=== PATIENT | male | born 1985 | race Caucasian/White ===

== ENCOUNTER 2025-06-29 00:42 | Emergency (ER) | payer MEDICAID, SELFPAY ==
[2025-06-29 00:48] VITALS: BP 165/96; PULSE 89; RESP 16; TEMP 36.9; O2SAT 98; BMI 27.1
[2025-06-29 00:52] VITALS: BP 165/96; PULSE 89; RESP 16; TEMP 36.9; O2SAT 98
--- NOTE | 2025-06-29 00:57 | W.ED.HA ---
HPI - Headache General: Stated Complaint: Upset stomach, bad headache Time Seen by Provider: 06/29/25 00:47 Source: patient Mode of arrival: ambulatory Limitations: no limitations History of Present Illness: 40-year-old male states he had a headache started roughly 2 to 3 hours ago states that started gradually and is worse and is currently an 8 out of 10. States he has photophobia and phonophobia he has had some nausea as well. States has had vomiting after the headache as well. Associated symptoms: Reports vomiting Related Data Allergies Allergy/AdvReac Type Severity Reaction Status Date / Time Penicillins Allergy Unknown Verified 06/29/25 00:59 Review of Systems Eyes: Denies: change in vision GI: Reports: vomiting Neuro: Reports: headache(s) Physical Exam Const: COMMON NORMALS: no acute distress, patient oriented x3 and healthy appearing HENMT: COMMON NORMALS: normocephalic and atraumatic HEAD & SCALP: normocephalic and atraumatic Eye: COMMON NORMALS: Equal, round and reactive pupils present and EOMs intact bilaterally PUPIL: Yes Equal, round and reactive pupils present Neck/C-Spine: COMMON NORMALS: full ROM and supple GENERAL: No Meningeal signs present Chest: COMMONS NORMALS: normal inspection of the chest Resp: COMMON NORMALS: normal respiratory effort, No retractions, No use of accessory muscles and clear to auscultation bilaterally AUSCULTATION: clear to auscultation bilaterally Cardio: COMMON NORMALS: regular rate, regular rhythm and No murmurs present (Cardio) RATE: regular rate RHYTHM: regular rhythm Extremity: COMMON NORMALS: normal to inspection and full ROM Neuro: COMMON NORMALS: patient oriented x3, moves all extremities and no focal motor deficits Psych: COMMON NORMALS: mental status grossly normal, Normal thought process present and cooperative THOUGHT PROCESS: Normal thought process present Skin: COMMON NORMALS: no rashes or lesions noted and no wounds GENERAL SKIN EXAM: no rashes or lesions noted Course Vital Signs: Vital signs: Vital Signs Temperature 98.4 F 06/29/25 00:52 Pulse Rate 89 06/29/25 00:52 Respiratory Rate 16 06/29/25 00:52 Blood Pressure 165/96 06/29/25 00:52 Pulse Oximetry 98 06/29/25 00:52 Oxygen Delivery Me thod Room Air 06/29/25 00:52 MDM - Headache Medical Decision Making Patient presents here with headaches likely migraine headache he has no signs of subarachnoid hemorrhage or meningitis his head CT was negative his headache is resolved currently after Reglan Benadryl and Toradol he is stable for discharge follow-up with PCP went over his imaging with him he understands agrees to plan Medical Records I reviewed the patient's medical records. Lab Data I reviewed the patient's lab results. Radiology Impressions Head CT 06/29/25 01:35 IMPRESSION: No acute intracranial abnormality. All radiology interpretation(s) finalized by discharge EKG Data EKG 1: I personally reviewed and interpreted this EKG as follows: EKG interpretation date: 06/29/25 EKG interpretation time: 01:28 Interpretation: nsr hr [address] elevation qrs 90 qtc 412 Discharge Plan Discharge Patient Disposition: Home Clinical Impression: Headache Condition: Stable Discharge Orders: Discharge ED (Routine); Ordered 06/29/25 Ordered By: Gianni Claros Discharge Diet: Advance as tolerated Discharge Activity: Resume usual activity Patient Instructions: Migraine Headache (ED) Print Language: Hebrew Coding Level of Care Code ED Websphere Consultant for Yadira Mckenzie
--- OUTSIDE RECORDS SUMMARY | 2025-06-29 01:07 | XMS_ITS | Clinical Summary ---
Author Organization [facility] Address [address] [place] [id number] Phone Care Team Providers Care Braid Cutter Name Role Phone System, Provider Not In DO Primary Care Provider Allergies Active Allergy Reactions Criticality Noted Date Comments Penicillins 05/01/2023 CHILDHOOD Medications albuterol (Proventil;Saw ilya) 90 mcg/actuation inhaler Inhale 1-2 puffs every 6 (six) hours if needed for wheezing. 18 g 05/01/2023 Active Social History Tobacco Use Types Packs/Day Years Used Date Smoking Tobacco: Every Day Cigarettes Smokeless Tobacco: Current Tobacco Cessation:Ready to Q uit: Not Asked; Counseling Given: Not Answered Sex and Gender Information Value Date Recorded Sex Assigned at Not on file Legal Sex Male 2:41 AM CDT Gender Identity Not on file Sexual Orientation Not on file Last Filed Vital Signs Vital Sign Reading Time Taken Comments Blood Pressure 121/81 05/01/2023 8:00 AM CDT Pulse 92 05/01/2023 8:00 AM CDT Temperature 36.8 C (98.2 F) 05/01/2023 2:44 AM CDT Respiratory Rate 16 05/01/2023 8:00 AM CDT Oxygen Saturation 96% 05/01/2023 8:00 AM CDT Inhaled Oxygen Concentration - - Weight 90.7 kg (200 lb) 05/01/2023 7:35 AM CDT Height 182.9 cm (6') 05/01/2023 7:35 AM CDT Body Mass Index 27.12 05/01/2023 7:35 AM CDT Plan of Treatment Health Maintenance Due Date Last Done Comments Lipid Panel 1983 MMR Vaccines (1 of 1 - Stand mandeep series) 1984 DTaP,Tdap,and Td Vaccines (1 - Tdap) 1990 Varicella Vaccines (1 of 2 - 13+ 2-dose series) 1996 Depression Screening 2001 Diabetes Screening 2001 Social Drivers of Health (SDoH) 2001 Hepatitis B Vaccines (1 of 3 - 19+ 3-dose series) 2002 Pneumococcal Vaccine: 50+ Ye ars (1 of 2 - PCV) 2002 Pneumococcal Vaccine (1 of 2 - PCV) 2002 HPV Vaccines (1 - 3-dose SCD M series) 2010 COVID-19 Vaccine (1 - 2023-2 5 season) 2025 Influenza Vaccine (#1) 2025 Zoster Vaccines (1 of 2) 2033 RSV Vaccines (1 - 1-dose 75+ series) 2058 HIB Vaccines Aged Out No longer eligi ble based on patient's age to complete this topic Hepatitis A Vaccines Aged Out No long er eligible based on patient's age to complete this topic IPV Vaccines Aged Out No longer eligi ble based on patient's age to complete this topic Meningococcal B Vaccine Aged Out No l onger eligible based on patient's age to complete this topic Meningococcal Vaccine Aged Out No debbie jameel eligible based on patient's age to complete this topic Rotavirus Vaccines Aged Out No longer eligible based on patient's age to complete this topic Insurance [facility] MEDICAID Care Teams Braid Cutter Relationship Specialty Start Date End Date System, Provider Not In, DO [address] [id number] PCP - General 05/01/23
--- OUTSIDE RECORDS SUMMARY | 2025-06-29 01:07 | XMS_ITS | Clinical Summary ---
Author Organization [facility] de Address [address] [place] [address] Phone Care Team Providers Care [facility] Cook Name Role Phone Unavailable Primary Care Provider Unavailabl e Allergies Active Allergy Reactions Criticality Noted Date Comments Nsaids (Non-Steroidal Anti-I nflammatory Drug) Unknown 11/18/2022 Penicillins Unknown 11/18/2022 Tramadol Unknown 11/18/2022 Medications citalopram (CeleXA) 20 mg tablet Take 1 Tablet (20 mg) by mouth daily at bedtime. 30 Tablet 12/15/2024 Active hydrOXYzine HCL (ATARAX) 25 mg tablet Take 1 Tablet (25 mg) by mouth every 8 hours as needed for Anxiety. 60 Tablet 12/15/2024 Active naltrexone (DEPADE) 50 mg tablet Take 1 Tablet (50 mg) by mouth daily. 30 Tablet 12/15/2024 Active Active Problems Problem Noted Date Diagnosed Date Partial bowel obstruction 09/08/2023 Nausea & vomiting 09/08/2023 Abdominal pain 09/08/2023 Encounters Date Type Department Care Team Description 06/06/2025 External Device Data [facility] ABSTRACTION Provider, Abstract 05/30/2025 External Device Data [facility] ABSTRACTION Provider, Abstract 05/29/2025 External Device Data [facility] ABSTRACTION Provider, Abstract 05/29/2025 External Device Data [facility] ABSTRACTION Provider, Abstract 05/23/2025 External Device Data [facility] ABSTRACTION Provider, Abstract 04/18/2025 External Device Data [facility] ABSTRACTION Provider, Abstract from Last 3 Months Social History Tobacco Use Types Packs/Day Years Used Date Smoking Tobacco: Some Days Cigarettes Tobacco Cessation:Ready to Q uit: Not Asked; Counseling Given: Not Answered Alcohol Use Standard Drinks/Week Comments Yes 0 (1 standard drink = 0.6 oz pur e alcohol) Feeling Safe Answer Date Recorded Are you in a relationship wi th someone who hurts you emotionally and/or physically? No 12/15/2024 Housing Stability Answer Date Recorded Social/Environmental Concerns Homeless;No electr icity;Lack of resources 09/08/2023 Sex and Gender Information Value Date Recorded Sex Assigned at Not on file Legal Sex Male 1:53 PM [employer]IGITAL [employer] Gender Identity Not on file Sexual Orientation Not on file Last Filed Vital Signs Vital Sign Reading Time Taken Comments Blood Pressure 143/90 12/15/2024 7:00 AM CDT Pulse 105 12/15/2024 3:36 AM CDT Temperature 36.8 C (98.2 F) 12/15/2024 3:36 AM CDT Respiratory Rate 16 12/15/2024 7:00 AM CDT Oxygen Saturation 98% 12/15/2024 7:00 AM CDT Inhaled Oxygen Concentration - - Weight 85 kg (187 lb 6.3 oz) 12/15/2024 3:36 AM CDT Height 182.9 cm (6') 12/15/2024 3:36 AM CDT Body Mass Index 25.41 12/15/2024 3:36 AM CDT Plan of Treatment Health Maintenance Due Date Last Done Comments Pre-Diabetes and Diabetes Screening 1983 DTAP/TDAP/TD VACCINES (1 - Tdap) 2002 HEPATITIS B VACCINES (1 of 3 - 19+ 3-dose series) 10/2001 HPV VACCINES (1 - 3-dose SCDM series) 2010 INFLUENZA VACCINE (#1) 2025 Abdominal Aortic Aneurysm (AAA) Screening Completed 09/08/2023 Procedures Procedure Name Priority Date/Time Associated Diagnosis Comments CT ABDOMEN PELVIS WO CONTRAST Stat 09/08/2023 2:17 AM DIGITAL MARKETING ASSOCIATE from Last 3 Months or Most Recently Relevant to Health Maintenance Results * CT ABDOMEN PELVIS WO CONTRAST (09/08/2023 2:17 AM DIGITAL MARKETING ASSOCIATE) Anatomical Region Laterality Modality Abdomen Computed Tomogra phy 09/08/2023 2:18 AM DIGITAL MARKETING ASSOCIATE Impressions 09/08/2023 2:28 AM DIGITAL MARKETING ASSOCIATE IMPRESSION: 1. Dilated fluid-filled proximal small bowel loops with transition point in the left lower quadrant to decompressed distal small bowel suggesting at least partial small bowel obstruction. The examination was performed with the adjustment of mA according to the patient size and/or the use of Iterative Reconstruction Technique. DICTATION LOCATION: Location 4 Narrative 09/08/2023 2:[address] [address] [address] ABDOMEN AND PELVIS WITHOUT CONTRAST DATE: 09/08/2023 2:17 AM HISTORY: LLQ abdominal pain, vomiting. See Reason for Exam COMPARISON: 04/05/2023 TECHNIQUE: Multislice helical imaging of the abdomen and pelvis without contrast. Orthogonal reconstructions were created. FINDINGS: LOWER CHEST: No acute consolidation in the visible lung bases. LIVER: No contour deforming mass. GALLBLADDER AND BILIARY: No calcified gallstones. No CT apparent gallbladder wall thickening or surrounding fluid. No biliary ductal dilation. PANCREAS: No ductal dilation or pancreatic centered inflammatory changes. SPLEEN: Mildly enlarged spleen measures 14 cm. ADRENAL GLANDS: Symmetric adrenal glands. No discrete mass. KIDNEYS/URETERS: No hydronephrosis. No contour deforming mass. No ureteral calculus. URINARY BLADDER: Unremarkable for the degree of distention. REPRODUCTIVE ORGANS: Unremarkable STOMACH AND BOWEL: Stomach is unremarkable for the degree of distention. There are dilated jejunal bowel loops in the left upper quadrant and bilateral lower quadrants. There is transition to decompressed distal small bowel (series 5 image 92 through 100) in the left lower quadrant. The distal small bowel loops are decompressed. The appendix is normal. Colon is normal in caliber. VESSELS: Normal caliber abdominal aorta. LYMPH NODES: No pathologic lymph node enlargement. PERITONEUM/RETROPERITONEUM: No pneumoperitoneum. No substantive free fluid or identifiable organized fluid collections. ABDOMINAL WALL: Unremarkable BONES: No destructive osseous lesions. ADDITIONAL: None Procedure Note Moose Covington III, MD - 09/08/2023 CT ABDOMEN AND PELVIS WITHOUT CONTRAST DATE: 09/08/2023 2:17 AM HISTORY: LLQ abdominal pain, vomiting. See Reason for Exam COMPARISON: 04/05/2023 TECHNIQUE: Multislice helical imaging of the abdomen and pelvis without contrast. Orthogonal reconstructions were created. FINDINGS: LOWER CHEST: No acute consolidation in the visible lung bases. LIVER: No contour deforming mass. GALLBLADDER AND BILIARY: No calcified gallstones. No CT apparent gallbladder wall thickening or surrounding fluid. No biliary ductal dilation. PANCREAS: No ductal dilation or pancreatic centered inflammatory changes. SPLEEN: Mildly enlarged spleen measures 14 cm. ADRENAL GLANDS: Symmetric adrenal glands. No discrete mass. KIDNEYS/URETERS: No hydronephrosis. No contour deforming mass. No ureteral calculus. URINARY BLADDER: Unremarkable for the degree of distention. REPRODUCTIVE ORGANS: Unremarkable STOMACH AND BOWEL: Stomach is unremarkable for the degree of distention. There are dilated jejunal bowel loops in the left upper quadrant and bilateral lower quadrants. There is transition to decompressed distal small bowel (series 5 image 92 through 100) in the left lower quadrant. The distal small bowel loops are decompressed. The appendix is normal. Colon is normal in caliber. VESSELS: Normal caliber abdominal aorta. LYMPH NODES: No pathologic lymph node enlargement. PERITONEUM/RETROPERITONEUM: No pneumoperitoneum. No substantive free fluid or identifiable organized fluid collections. ABDOMINAL WALL: Unremarkable BONES: No destructive osseous lesions. ADDITIONAL: None IMPRESSION: 1. Dilated fluid-filled proximal small bowel loops with transition point in the left lower quadrant to decompressed distal small bowel suggesting at least partial small bowel obstruction. The examination was performed with the adjustment of mA according to the patient size and/or the use of Iterative Reconstruction Technique. DICTATION LOCATION: Location [address] ORDERABLES Final Result from Last 3 Months or Most Recently Relevant to Health Maintenance Insurance [facility] [id number] [place] [address] MD SHARON [id number] Advance Directives For more information, please contact: [phone] * Full Code (Latest Code Status on File) Date Activated Date Inactivated Comments 09/08/2023 4:20 AM 09/08/2023 6:34 PM
--- OUTSIDE RECORDS SUMMARY | 2025-06-29 01:07 | XMS_ITS | Data Portability ---
Author Organization [place] - [facility], [facility] - [place] Address [address] [place] [address] Assessment Encounter Date Assessment Date Assessment LastModified by Organization Details LastModified Time 07/01/2023 07/01/2023 will call with l ab results and treat as appropriate. encouraged to use condoms to prevent STD's. RTC as needed. [email or web address] Not available 07/01/2023 17:05:09 01/28/2024 01/28/2024 discussed option s with patient-US/CT abdomen, but this will not happen in next couple of days; pt prefers to go to ER for further evaluation and treatment but has no phone or ride and requests we call the ambulance for transport. Ambulance notified and en route for transport. [email or web address] Not available 01/28/2024 14:19:07 05/01/2024 05/01/2024 Clear liquid onl y for 24 hours then advance as tolerated - avoid greasy and spicy foods Will notify pt of lab and xray results Start omeprazole as prescribed Start Tylenol ES take only as prescribed (lower dose due to hx of Cirrhosis of Liver) f/u as needed [email or web address] Not available 05/01/2024 15:39:27 05/29/2025 05/29/2025 CENTRAL CORNEAL ULCER, LEFT EYE: - Identified corneal ulceration in left eye, likely due to prolonged contact lens wear. - Determined urgent ophthalmology evaluation necessary due to risk of vision loss. - Explained that corneal ulceration can worsen and potentially cause blindness if left untreated. - Discussed the importance of proper contact lens care and removal. - Dl to discontinue wearing contact lenses. - Started moxifloxacin eye drops to be administered hourly in left eye for broad-spectrum coverage. - Performed eye exam with fluorescein dye to assess corneal damage. - Referred to assistant foreman for urgent evaluation of corneal ulcer in left eye with follow up appointment scheduled for 1:15 PM the following day at [facility]. - Contact ophthalmology office if issues arise or need to reach them. SLURRED SPEECH AND SOMNOLENCE: - Observed slurred speech and drowsiness, raising concerns about sobriety and ability to drive safely. Pt became irate during visit and started shouting at provider and nurse/witness, Dee Orourke RN. I recommended that pt have someone come to pick him up and drive him home. Pt was shouting I'm sober!!! I haven't taken anything! I'm sober. 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 Informed pt that I would call the police if he chose to drive in his current state d/t concerns for his safety as well as the safety of others. Pt continued to leave clinic and get in a [employer] that he had driven here. Contacted [facility]'s office. Provided with name of pt, what he was driving, and the license plate number [id number] along with my concerns of his current state and risk to himself and others. They stated they would dispatch someone to the area to look for him. [email or web address] Not available 05/29/2025 18:48:27 Plan of Treatment Reminders Order Date Submit Date Provider Last Modified By Organization Details Last Modified Time Details Appointments None recorded. Lab CBC w/ diff 2023 [facility], [address] [place], [address], 13:53:44 CMP, serum or plasma 2023 024 [facility], [address] [place], [address], 4 13:53:46 amylase, QN, blood 2023 024 [facility], [address] [place], [address], 4 13:53:45 lipase, serum or plasma 2023 024 [facility], [address], [place], [address], 4 13:53:45 unlisted lab - H. pylori (mhcl) 2023 024 [facility], [address], [place], [address], 4 13:53:44 CT + NG DNA, PCR, urine 2022 023 [email or web address] Not available 3 09:42:38 HIV (1+2) Ab, rapid, unspecified specimen 2022 023 [facility], [address], [place], [address], 3 14:51:42 RPR (rapid plasma reagin), serum [email or web address] [place] [address] Clinical Lab, [address], [place], [address], 3 10:27:24 hepatitis panel (A+B+C), acute, serum 2022 023 [facility], [address], [place], [address], 3 14:07:09 HSV (1+2) DNA, qual, PCR, unspecified specimen [address] Clinical Lab, [address], [place], [address], 3 10:27:25 Referral employment evaluator/case manager referral 2024 025 [email or web address] 1 [facility] [place], [address], [place], [address], 18:00:14 Procedures None recorded. Surgeries None recorded. Imaging XR, lumbar spine 2023 024 [email or web address] [facility], [address] [place], [address], 4 15:57:52 XR, abdomen 2023 024 [email or web address] [facility], [address] [place], [address], 4 15:58:13 Medication Orders moxifloxaci n 0.5 % eye drops 2024 025 [facility], [address] [place], [id number], 5 18:17:51 Tylenol Extra Strength 500 mg tablet [address] [facility], [address] [place], [id number], 5 15:08:21 omeprazole 20 mg capsule,del ayed release [address], [address] [place], [place], [id number], 5 15:08:11 Tylenol Extra Strength 500 mg tablet [address], [address] [place], [id number], 5 15:08:21 Patient TargetsNo targets recorded. 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 GONOR RHOEA E RNA, TMA, UROGE NITAL chlamydia trachomatis RNA, tma, urogenital TNP normal TEST NOT PERFO RMED No suita ble speci men recei juanpablo. Pleas e revie w the test requi remen ts at testd irect ory.q uestd iagno [employer] .Digital Reasoning Not Available [facility] [address] [place], [address], 07/03/2023 12:39:02 07/01/2007/09/2023 TEST AUTHO NATALI HEAD client contact: SALLIE WRAY N Not Available [facility] [address] [place], [address], 07/09/2023 20:03:52 07/01/2007/09/2023 TEST AUTHO NATALI HEAD comment See Notes Fax augustuse r: [phone] Not Available [facility] [address] [place], [address], 07/09/2023 20:03:52 07/01/20 23 07/09/2023 TEST AUTHO RIZAT ION report always message signature See Notes The labor atory testi ng on this patie nt was verba lly reque sted or confi rmed by the order ing nancy olesya or his or her autho rized repre senta tive after conta ct with an emplo bourgeois of [employer]. Anh al regul ation s requi re that we maint ain on file writt en autho rizat ion for all labor atorsusanna testi ng. Accor dingl y we are askin g that the order ing physi olesya or his or her autho rized repre senta tive sign a copy of this repor t and promp tly retur n it to the clien t servi ce repre senta tive. Signa ture: __ Not Available [facility] [address] [place], [address], 07/09/2023 20:03:52 07/01/20 23 07/09/2023 TEST AUTHO RIZAT ION test code: [id number] Not Available [facility] [address] [place], [address], 07/09/2023 20:03:52 07/01/20 23 07/09/2023 TEST AUTHO RIZAT ION test name: RPR (DX) W/REFL TITER AND Not Available [facility] [address] [place], [address], 07/09/2023 20:03:52 07/01/20 23 07/09/2023 HEPAT ITIS PANEL , ACUTE W/REF KIMBERLY TO CONFI RMATI ON comment See Notes This test was perfo rmed using Real- Time Polym erase Chain React ion. Repor table Range : 15 IU/mL to 100,0 00,00 0 IU/mL (1.18 Log IU/mL to 8.00 Log IU/mL ). The israel tical perfo rmanc e rashi cteri stics of this assay have been deter mined by [facility] [employer] [facility] [facility]. The modif icati ons have not been clear ed or appro juanpablo by the FDA. This assay has been valid ated pursu ant to the CLIA regul ation s and is used for clini nicole purpo ses. For more infor michele andrews on this test, go to: http: //[facility] leon andrews.que stdia gnost ics.c om/fa q/FAQ 22v1 (This link is being provi ded for infor michele post/ educa hitesh l purpo ses only. ) This assay is inten ded for use as an aid in the diagn osis of HCV infec tion and the manag ement of HCV infec zeinab patie nts under going anti- viral thera py. Not Available [facility] [address] [place], [address], 07/09/2023 20:03:52 07/01/20 23 07/09/2023 HEPAT ITIS PANEL , ACUTE W/REF KIMBERLY TO CONFI RMATI ON HCV RNA, quantitative real time PCR <15 NOT DETECT ED IU/mL not detect ed normal Not Available [facility] [address] [place], [address], 07/09/2023 20:03:52 07/01/20 23 07/09/2023 HEPAT ITIS PANEL , ACUTE W/REF KIMBERLY TO CONFI RMATI ON HCV RNA, quantitative real time PCR <1.18 NOT DETECT ED log_I U/mL not detect ed normal HCV RNA is not detec zeinab. There is no labor atory evide nce of a curre nt activ e HCV infec tion. This patte rn of resul ts (unde tecta ble HCV RNA combi mickey with react timmy HCV antib indira) could be consi stent with a resol juanpablo past infec tion if the clini nicole histo ry is damaris tible with previ ous HCV expos ure. Howev er, if no previ ous expos ure is suspe cted, the react timmy HCV antib indira could be a biolo gical false posit timmy resul t. Not Available [facility] [address] [place], [address], 07/09/2023 20:03:52 07/01/20 23 07/09/2023 HEPAT ITIS PANEL , ACUTE W/REF KIMBERLY TO CONFI RMATI ON hepatitis A IgM NON-RE ACTIVE non-re active normal For addit ional yohannes mistry e refer to http: //[facility] andrews.que stdia gnost ics.c om/fa q/FAQ 202 (This link is being provi ded for infor matio nal/ educa hitesh l purpo ses only. ) Not Available [facility] [address] [place], [address], 07/09/2023 20:03:52 07/01/20 23 07/09/2023 HEPAT ITIS PANEL , ACUTE W/REF KIMBERLY TO CONFI RMATI ON hepatitis B core antibody (IgM) NON-RE ACTIVE non-re active normal For addit ional yohannes mistry e refer to http: //chloé andrews.dickson stdia gnost ics.c om/fa q/FAQ (This link is being provi ded for infor matio nal/ educa hitesh l purpo ses only. ) Not Available [facility] [address] [place], [address], 07/09/2023 20:03:52 07/01/20 23 07/09/2023 HEPAT ITIS PANEL , ACUTE W/REF KIMBERLY TO CONFI RMATI ON hepatitis B surface antigen NON-RE ACTIVE non-re active normal For addit ional infor yohannes danielle e refer to http: //edu catio n.que stdia gnost ics.c om/fa q/FAQ (This link is being provi ded for infor matio nal/ educa hitesh l purpo ses only. ) Not Available [facility] [place] [address] [place], [address], 07/09/2023 20:03:52 07/01/20 23 07/09/2023 HEPAT ITIS PANEL , ACUTE W/REF KIMBERLY TO CONFI RMATI ON hepatitis C antibody REACTI VE non-re active abnormal Based on this resul t, the sampl e will be teste d for HCV RNA by a Nucle ic Acid Ampli ficat ion Test (NAAT ) to deter mine if the patie nt has a curre nt activ e infec tion. Not Available [facility] [address] [place], [address], 07/09/2023 20:03:52 07/01/20 23 07/09/2023 HSV, TYPE 1 AND 2 DNA, QN REAL TIME PCR hsv 1 DNA, qn PCR NOT DETECT ED copie s/mL normal Not Available [facility] [address] [place], [address], 07/09/2023 20:03:53 07/01/20 23 07/09/2023 HSV, TYPE 1 AND 2 DNA, QN REAL TIME PCR hsv 2 DNA, qn PCR NOT DETECT ED copie s/mL normal A Not Detec zeinab resul t on serum , plasm a or whole blood does not exclu de curre nt or past HSV genit al infec tion. If a lesio n is prese nt, submi t a swab of the lesio n for herpe s simpl ex cultu re or PCR. If a lesio n is not prese nt, order herpe s simpl ex serol ogy IgG. REFER ENCE RANGE : NOT DETEC ZEINAB This test was devel oped and its israel tical perfo rmanc e rashi cteri stics have been deter mined by [employer] [facility]. It has not been clear ed or appro juanpablo by FDA. This assay has been valid ated pursu ant to the CLIA regul ation s and is used for clini nicole purpo ses. Not Available [facility] [address] [place], [address], 07/09/2023 20:03:53 07/01/20 23 07/09/2023 HSV, TYPE 1 AND 2 DNA, QN REAL TIME PCR source SERUM normal Not Available [facility] [address] [place], [address], 07/09/2023 20:03:53 07/01/20 23 07/09/2023 RPR (DX) W/REF L TITER AND CONFI RMATO RY TESTI NG RPR (DX) w/refl titer and confirmatory testing TNP normal TEST NOT PERFO RMED The speci men excee ds stabi lity for the test reque sted. Your reque st to have a [employer] alan copy faxed has been germain littlejohnedg ed. Queue d to: [phone] Not Available [facility] [address] [place], [address], 07/09/2023 20:03:53 07/12/20 23 07/13/2023 CT/NG DNA,P CR URINE chlamydia trachomatis urine Not Detect ed not detect ed Not Available [facility] [address] [place], [address], 07/13/2023 13:25:22 07/12/20 23 07/13/2023 CT/NG DNA,P CR URINE neisseria gonorrhoeae urine Not Detect ed not detect ed Not Available [facility] [address] [place], [address], 07/13/2023 13:25:22 05/01/20 24 05/02/2024 CBC WBC 9.5 x10(3 )/uL 2.6 - 8.8 high Not Available [facility] [address] [place], [place], [address], 05/02/2024 13:53:44 05/01/20 24 05/02/2024 CBC RBC 4.74 x10(6 )/uL 3.60 - 5.30 Not Available [facility] [address] [place], [place], [address], 05/02/2024 13:53:44 05/01/20 24 05/02/2024 CBC HGB 13.9 g/dL 11.3 - 15.7 Not Available [facility] [address] [place], [place], [address], 05/02/2024 13:53:44 05/01/20 24 05/02/2024 CBC HCT 45.5 % 32.6 - 47.5 Not Available [facility] [address], [place], [address], 05/02/2024 13:53:44 05/01/20 24 05/02/2024 CBC MCV 96.0 fL 80.3 - 103.4 Not Available [facility] [address], [place], [address], 05/02/2024 13:53:44 05/01/20 24 05/02/2024 CBC MCH 29.3 pg 26.0 - 34.4 Not Available [facility] [address], [place], [address], 05/02/2024 13:53:44 05/01/20 24 05/02/2024 CBC MCHC 30.5 g/dL 31.8 - 36.3 low Not Available [facility] [address], [place], [address], 05/02/2024 13:53:44 05/01/20 24 05/02/2024 CBC platelet count 146 % 134 - 377 Not Available [facility] [address] [place], [address], 05/02/2024 13:53:44 05/01/20 24 05/02/2024 CBC neut% 30.6 % 38.3 - 69.0 low Not Available [facility] [address] [place], [address], 05/02/2024 13:53:44 05/01/20 24 05/02/2024 CBC lymph% 57.7 % 17.5 - 47.9 high Not Available [facility] [address] [place], [address], 05/02/2024 13:53:44 05/01/20 24 05/02/2024 CBC mxd% 11.7 % 1.9 - 24.6 Not Available [facility] [address] [place], [address], 05/02/2024 13:53:44 05/01/20 24 05/02/2024 CBC neut# 2.9 x10(3 )/uL 1.2 - 5.3 Not Available [facility] [address] [place], [address], 05/02/2024 13:53:44 05/01/20 24 05/02/2024 CBC lymph# 5.5 x10(3 )/uL 0.8 - 2.7 high Not Available [facility] [address] [place], [address], 05/02/2024 13:53:44 05/01/20 24 05/02/2024 CBC mxd# 1.1 x10(3 )/uL 0.1 - 1.5 Not Available [facility] [address], [place], [address], 05/02/2024 13:53:44 05/01/20 24 05/02/2024 CBC RDW-SD 54.4 fL 33.4 - 49.2 high Not Available [facility] [address] [place], [address], 05/02/2024 13:53:44 05/01/20 24 05/02/2024 CBC RDW-CV 14.5 % 10.8 - 14.9 Not Available [facility] [address] [place], [address], 05/02/2024 13:53:44 05/01/20 24 05/02/2024 CBC MPV 10.9 fL 8.1 - 12.4 Not Available [facility] [address] [place], [address], 05/02/2024 13:53:44 05/01/20 24 05/02/2024 H. PYLOR I H. pylori NEGATI VE Not Available [facility] [address] [place], [address], 05/02/2024 13:53:44 05/01/20 24 05/02/2024 AMYLA SE amylase 56.0 U/L 30.0 - 110.0 Not Available [facility] [address] [place], [address], 05/02/2024 13:53:45 05/01/20 24 05/02/2024 LIPAS E lipase 41.0 U/L 23.0 - 300.0 Not Available [facility] [address] [place], [address], 05/02/2024 13:53:45 05/01/20 24 05/02/2024 COMPR EHENS TIMMY METAB OLIC PANEL (CMP) albumin 4.4 g/dL 3.5 - 5.0 Not Available [facility] [address] [place], [address], 05/02/2024 13:53:46 05/01/20 24 05/02/2024 COMPR EHENS TIMMY METAB OLIC PANEL (CMP) chloride 104 mmol/ L 98 - 107 Not Available [facility] [address] [place], [address], 05/02/2024 13:53:46 05/01/20 24 05/02/2024 COMPR EHENS TIMMY METAB OLIC PANEL (CMP) creatinine 1.08 mg/dL 0.66 - 1.25 Not Available [facility] [address] [place], [address], 05/02/2024 13:53:46 05/01/20 24 05/02/2024 COMPR EHENS TIMMY METAB OLIC PANEL (CMP) eco2 28 mmol/ L 22 - 30 Not Available [facility] [address] [place], [address], 05/02/2024 13:53:46 05/01/20 24 05/02/2024 COMPR EHENS TIMMY METAB OLIC PANEL (CMP) glucose 97 mg/dL 74 - 106 Not Available [facility] [address] [place], [address], 05/02/2024 13:53:46 05/01/20 24 05/02/2024 COMPR EHENS TIMMY METAB OLIC PANEL (CMP) potassium 3.80 mmol/ L 3.50 - 5.10 Not Available [facility] [address] [place], [address], 05/02/2024 13:53:46 05/01/20 24 05/02/2024 COMPR EHENS TIMMY METAB OLIC PANEL (CMP) alkaline phos 101 U/L 38 - 126 Not Available [facility] [address] [place], [address], 05/02/2024 13:53:46 05/01/20 24 05/02/2024 COMPR EHENS TIMMY METAB OLIC PANEL (CMP) sodium 141.0 mmol/ L 137.0 - 145.0 Not Available [facility] [address] [place], [address], 05/02/2024 13:53:46 05/01/20 24 05/02/2024 COMPR EHENS TIMMY METAB OLIC PANEL (CMP) total bilirubin <0.45 mg/dL 0.2 - 1.3 Not Available [facility] [address] [place], [address], 05/02/2024 13:53:46 05/01/20 24 05/02/2024 COMPR EHENS TIMMY METAB OLIC PANEL (CMP) total protein 7.7 g/dL 6.3 - 8.2 Not Available [facility] [address] [place], [address], 05/02/2024 13:53:46 05/01/20 24 05/02/2024 COMPR EHENS TIMMY METAB OLIC PANEL (CMP) ALT 26 U/L 0 - 50 Not Available [facility] [address] [place], [address], 05/02/2024 13:53:46 05/01/20 24 05/02/2024 COMPR EHENS TIMMY METAB OLIC PANEL (CMP) BUN/urea 5 mg/dL 9 - 20 low Not Available [facility] [address] [place], [address], 05/02/2024 13:53:46 05/01/20 24 05/02/2024 COMPR EHENS TIMMY METAB OLIC PANEL (CMP) eGFR 88 mL/mi n/1.7 3m2 >60 *eGFR Refer ence Value s Suzy l: >60 mL/mi n/1.7 3m2 Abnor mal: < 60 mL/mi n/1.7 3m2 *eGFR Refer ence Value s Suzy l: >60 mL/mi n/1.7 3m2 Abnor mal: < 60 mL/mi n/1.7 3m2 Not Available [facility] [address], [place], [place], [address], 05/02/2024 13:53:46 05/01/20 24 05/02/2024 COMPR EHENS TIMMY METAB OLIC PANEL (CMP) A/G ratio 1.3 (calc ) 1.0 - 2.5 Not Available [facility] [address], [place], [place], [address], 05/02/2024 13:53:46 05/01/20 24 05/02/2024 COMPR EHENS TIMMY METAB OLIC PANEL (CMP) globulin 3.4 g/dL_ (calc ) 1.9 - 3.7 Not Available [facility] [address] [place], [place], [address], 05/02/2024 13:53:46 05/01/20 24 05/02/2024 COMPR EHENS TIMMY METAB OLIC PANEL (CMP) calcium 9.2 mg/dL 8.9 - 10.7 Not Available [facility] [address], [place], [address], 05/02/2024 13:53:46 05/01/20 24 05/02/2024 COMPR EHENS TIMMY METAB OLIC PANEL (CMP) AST 30 U/L 17 - 59 Not Available [facility] [address], [place], [address], 05/02/2024 13:53:46 05/01/20 24 05/02/2024 COMPR EHENS TIMMY METAB OLIC PANEL (CMP) BUN/crea ratio 5 (calc ) 6 - 22 low Not Available [facility] [address] [place], [address], 05/02/2024 13:53:46 05/01/20 24 05/02/2024 XR, lumba r spine No observ ation record ed. [email or web address] [address], [address], 05/02/2024 09:06:21 05/01/20 24 05/02/2024 XR, abdom en No observ ation record ed. [email or web address] [address], [address], 05/02/2024 09:06:22 05/02/20 24 05/01/2024 XR, abdom en No observ ation record ed. [email or web address] [address], [address], 05/03/2024 10:15:59 05/02/20 24 05/01/2024 XR, lumba r spine No observ ation record ed. [email or web address] [address], [address], 05/03/2024 10:16:15 Result Notes None recorded. Problems Name Problem SNOMED Code Status Onset Date Resolution Date Notes Provider Name and Address Organization Details Recorded Time Cirrhosis of liver Active LETTY HINSON NP [address], [address] , [facility] 15:39:43 History of hepatitis C [id number] Active reports has taken the medicatio n for this and doesn't have it any more. 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 95771720 Active 2005 Category: DD; Medicine Descripti on: MAJOR DEPRESSIO N RECURRENT SEVERE; Display in Medcin: YES; Display in ESB: YES; Confident iality Level: Level 1 Not Available formerly [facility] 6 21:58:17 Dental caries 60907132 Active 2006 Created By: RUDOLPH DAVIS; Category: DD; Medicine Descripti on: CARIES; Display in Medcin: YES; Display in ESB: YES; Confident iality Level: Level 1 Not Available formerly [facility] 6 21:58:17 Acute back pain with sciatica [id number] Active 2023 LETTY HINSON NP [address], [address] , [facility] 4 15:05:34 Upper abdominal pain 59259948 Active 2023 LETTY HINSON NP [address], [address] , [facility] 4 15:07:01 Problem Notes None recorded. Procedures Surgical History Date Name Laterality Status Provider Name and Address Organization Details Recorded Time graft of skin to skin completed Kari Aguayo [facility] 07/01/2023 15:23:08 Imaging Results None recorded. Procedure Notes None recorded. Medical Equipment None Reported. Allergies Allergen ID Allergen Name Allergen Category Reaction Reaction Severity Criticality Documentation Date Start Date Code Code System Note Provider Name and Address Organization Details Recorded Time 27066 Product containin g penicilli n (product) medicatio n Not available Not available Not available 09/06/20162006 76412 8001 SNOMED Comme nt: Last Edite d: MARIELOS walker DC - [facility] 13:39:27 Medications Name Sig Start Date Stop Date Status Note LastModified by Organization Details LastModified Time Zithromax Z-Corky 250 mg tablet TAKE 2 TABLETS (500 MG) BY ORAL ROUTE ONCE DAILY FOR 1 DAY THEN 1 TABLET (250 MG) BY ORAL ROUTE ONCE DAILY FOR 4 DAYS 05/29 completed Not Available Not Available Not Available citalopram 20 mg tablet TAKE ONE TABLET BY MOUTH EVERY MORNING 05/29 completed Not Available Not Available Not Available omeprazole 20 mg capsule,del ayed release Take 1 capsule every day by oral route for 30 days, for upper abd pain. 05/29 completed Not Available Not Available Not Available hydroxyzine HCl 25 mg tablet TAKE 1/2 TO 1 TABLET BY MOUTH TWICE DAILY, NEEDED FOR ANXIETY/A GITATION 05/29 completed Not Available Not Available Not Available methylpredn isolone 4 mg tablets in a dose pack TAKE ONE DOSE PACK BY MOUTH DIRECTED 05/29 completed Not Available Not Available Not Available Tylenol Extra Strength 500 mg tablet Take 1 tablet every 6 hours by oral route as needed for 10 days, for low back pain. 05/29 completed Not Available Not Available Not Available Abilify 10 mg tablet Take 1 tablet every day by oral route. 05/29 completed Not Available Not Available Not Available moxifloxaci n 0.5 % eye drops INSTILL 1 DROP INTO LEFT EYE BY OPHTHALMI C ROUTE HOURLY WHILE AWAKE FOR THE NEXT 24 HRS AND THEN 3 TIMES DAILY THEREAFTE R UNTIL SEEN BY EYE SPECIALIS T active Not Available Not Available No t Available Narcan 4 mg/actuatio n nasal spray in event of opioid overdose - call 911 - instill 1 spray into one nostril & repeat dose every 2-3 minutes as needed if no or minimal response 05/29 completed Not Available Not Available Not Available Vitals Date Recorded Body height Body mass index (BMI) Body weight Body temperature Respiratory rate Heart rate Oxygen saturation Oxygen saturation in Arterial blood by Pulse oximetry Systolic And Diastolic Provider Name and Address Organization Details Last Updated DateTime 4 182.88 cm 27.2 kg/m2 29438.2 2 g 98.8 [degF] 18 /min 106 /min 99 % 99 % 125/80 mm[Hg[facility] 13:37:20 Date Recorded Body height Body mass index (BMI) Body weight Body temperature Respiratory rate Heart rate Oxygen saturation Oxygen saturation in Arterial blood by Pulse oximetry Systolic And Diastolic Provider Name and Address Organization Details Last Updated DateTime 4 182.88 cm 26.5 kg/m2 12988.9 6 g 97 [degF] 16 /min 79 /min 97 % 97 % 106/74 mm[Hg] [facility] 4 14:33:14 Date Recorded Body height Body mass index (BMI) Body weight Body temperature Respiratory rate Heart rate Oxygen saturation Oxygen saturation in Arterial blood by Pulse oximetry Systolic And Diastolic Provider Name and Address Organization Details Last Updated DateTime 5 182.88 cm 26.4 kg/m2 84702.5 1 g 97.4 [degF] 18 /min 99 /min 99 % 99 % 110/80 mm[Hg] [facility] 5 15:06:31 Date Recorded Body weight Body mass index (BMI) Body height Body temperature Heart rate Oxygen saturation Oxygen saturation in Arterial blood by Pulse oximetry Respiratory rate Systolic And Diastolic Provider Name and Address Organization Details Last Updated DateTime 3 04297.6 6 g 23.7 kg/m2 182.88 cm 98.8 [degF] 135 /min 98 % 98 % 18 /min 102/80 mm[Hg] [facility] 3 15:15:28 Social History Question Answer Notes LastModified by Organizat ion Details LastModified Time Tobacco Smoking Status Current Every Day Smoker Kariamy Aguayo [facility] 07/01/2023 15:22:00 Do You Have An Advance Directive? No [email or web address] Information not available 01/28/2024 Do You Wear A Helmet When Biking? No Information not available 07/01/2023 Are You Blind Or Do You Have Difficulty Seeing? No Information not available 07/01/2023 Is Blood Transfusion Acceptable In An Emergency? Yes [email or web address] Information not available 01/28/2024 What Is Your Level Of Caffeine Consumption? Occasional Information not available 07/01/2023 In The 14 Days Before Symptom Onset, Have You Had Close Contact With A Laboratory-confir med COVID-19 While That Case Was Ill? No Information not available 07/01/2023 In The 14 Days Before Symptom Onset, Have You Had Close Contact With A Person Who Is Under Investigation For COVID-19 While That Person Was Ill? No Information not available 07/01/2023 Have You Been To An Area Known To Be High Risk For COVID-19? No Information not available 07/01/2023 Are You Deaf Or Do You Have Serious Difficulty Hearing? No Information not available 07/01/2023 What Type Of Diet Are You Following? REGULAR Information not available 07/01/2023 Which Illicit Or Recreational Drugs Have You Used? Marijuana Information not available 07/01/2023 Have You Processed Blood Or Body Fluids From An Ebola Virus Disease Patient Without Appropriate PPE? No Information not available 01/28/2024 What Is The Highest Grade Or Level Of School You Have Completed Or The Highest Degree You Have Received? [id number] Information not available 01/28/2024 How Many Years Have You Used Illicit Or Recreational Drugs? 15 [email or web address] Information not available 01/28/2024 What Was The Date Of Your Most Recent Tobacco Screening? 05/29/2025 Information not available 05/29/2025 How Many Children Do You Have? 0 [email or web address] Information not available 01/28/2024 Do You Use Protection During Sex? Always [email or web address] Information not available 01/28/2024 What Is Your Relationship Status? Single Information not available 01/28/2024 Do You Use Your Seat Belt Or Car Seat Routinely? Yes Information not available 07/01/2023 Are You Sexually Active? Yes Information not available 07/01/2023 How Much Tobacco Do You Smoke? 0.25 PPD Information not available 07/01/2023 Have You Used IV Drugs? Yes [email or web address] Information not available 01/28/2024 Do You Have Difficulty Walking Or Climbing Stairs? No Information not available 07/01/2023 Do You Want To Talk About Contraception Or Prevention During Your Visit Today? No - I Do Not Want To Talk About Contraception Today Because I Am Here For Something Else Information not available 05/29/2025 Sex: Male Functional Status Question Answer Note LastModified by Organizat ion Details LastModified Time Do you use any illicit or recreational drugs? Yes Information not available 07/01/2023 Do you or have you ever used any other forms of tobacco or nicotine? No Information not available 07/01/2023 What is your level of alcohol consumption? None Information not available 07/01/2023 Are you currently employed? Yes [email or web address] Information not available 01/28/2024 Do you have access to reliable transportation? No Information not available 07/01/2023 Are you able to walk independently without assistance or assistive devices? [email or web address] Information not available 07/01/2023 Do you have difficulty doing errands alone? No Information not available 07/01/2023 Are you able to care for yourself independently? Yes Information not available 07/01/2023 Do you have difficulty dressing, bathing, grooming, or toileting? No Information not available 07/01/2023 What is your exercise level? None Information not available 07/01/2023 Mental Status Question Answer Note LastModified by Organizat ion Details LastModified Time Do you feel stressed (tense, restless, nervous, or anxious, or unable to sleep at night)? [id number] Information not available 07/01/2023 Do you have difficulty concentrating, remembering or making decisions? No Information no t available 07/01/2023 Family History Nothing Reported. Medical History Condition Response Other N Gout N Kidney Stones N Blood Diseases N Hyperthyroidism N Blood Transfusion N Depression N COPD N Incontinence N Edema N Endocrine Disorders N Anxiety Disorder N Muscle, Joint, or Bone Problems N Obesity N Vision or Eye Problems N Arthritis N Auditory Hallucinations N Infertility N Cancer N Stroke N Varicosities N Fibromyalgia N Headaches N Kidney Disease N Abnormal Bleeding N Reproductive System Problems N Ear or Hearing Problems N Hospitalizations N Learning Disorder N Skin Problems N Eating Disorder N MRSA exposure N Urinary Problems N Constipation N Brain Injury N Visual Hallucinations N AIDS/HIV N Tuberculosis N Back Problems N Asthma N GERD/Reflux N Hepatitis N Pulmonary Embolism N Chronic Ear Infections N Chicken Pox N Autism Spectrum Disorder (ASD) N Thrombophilias N Thyroid Disease N Breast Cancer N Hypothyroidism N Lung Disease N Developmental or Behavioral Disorders N Defects or Inherited Disease N Breast Problem N Difficulty Swallowing N Anesthesia Complications N Deep Vein Thrombosis N Meniere's disease N Hearing Loss N Head Injury/Concussion N Congenital Anomalies N Abnormal Pap Smear N Endometriosis N Bladder or Kidney Problems N High Cholesterol N Nervous System Disorder N Liver Disease N Psychiatric/Mental Health Condition N Schizophrenia N Allergies/Hayfever N Parkinson's Disease N GI Problems N ADD/ADHD N Anemia N Colon Polyps N Heart Attack (MA) N Diabetes N Ovarian Cancer N Bedwetting N Seizures/Epilepsy N Amnesia N Congestive Heart Failure (CHF) N Eczema N Dementia N Diverticulitis N Abuse/Domestic Violence N Cardiovascular N Tourette Syndrome N Hypertension N Pre-Eclampsia N Osteoporosis N Immunizations Vaccine Type Date Status Note Provider Nam e and Address Organization Details Recorded Time COVID-19, mRNA, LNP-S, PF, 30 mcg/0.3 mL dose 10/14/2021 completed Dee Orourke [facility] 07/06/2023 13:44:25 COVID-19, mRNA, LNP-S, PF, 30 mcg/0.3 mL dose 11/04/2021 completed Dee Orourke [facility] 07/06/2023 13:44:25 Hep A, adult 10/14/2021 completed Dee andrews [facility] 07/06/2023 13:44:25 Past Encounters Encounter ID Performer Location Encounter Start Date Encounter Closed Date Diagnosis/Indication Diagnosis SNOMED-CT Code Diagnosis ICD10 Code Diagnosis IMO Codes Diagnosis Note [id number] CAROL FITZGERALD DO [address] [address] 07/01/2023 14:58:41 07/01/2023 17:13:59 At increased risk of sexually transmitted infection 484849384 Z20.2 Diet education 78893134 Z71.3 Exercises education, guidance, and counseling 999813604 Z71.82 Finding of body mass index 937721469 Z68.23 BMi 23.7 [id number] CAROL FITZGERALD DO [address] [address] 01/28/2024 13:34:25 01/28/2024 14:22:13 Low back pain 906039454 M54.50 tylenol sample dispensed as requested for back pain Abdominal pain 73627294 R10.9 pt requests transport to ER via ambulance [id number] CAROL FITZGERALD DO [address] [address] 05/01/2024 14:17:48 05/01/2024 15:52:51 Acute back pain with sciatica 668236823 M54.41 Upper abdominal pain 831 59100 R10.10 [id number] CAROL FITZGERALD DO [address] [address] 05/29/2025 14:51:50 05/30/2025 09:02:28 Ulcer of cornea of left eye 2359496410 68609 H16.002 988022 Abnormal behavior 033769 06 R46.89 786664 Overweight in adulthood with body mass index of 25 or more but less than 30 794206238 Z68.26 262753 Does use c ontact lenses 002924351 Z97.3 0870924 Health Concerns Section Related Observation LastModified by Organization Detai ls LastModified Time None Recorded Concern Status LastModified by Organization Details LastModified Time None Recorded Advance Directives Directive N: Payers Insurance Date Sequence Insurance Name Policy Number Policy Pruett Covered Member ID Pruett Member ID Guarantor Name 05/30/2025 2 [place] [facility] [id number] [facility] 05/30/2025 1 [employer] (MEDICAID REPLACEMENT - HMO) MIGUEL North [id number] [employer] Notes Date Note Type Note Provider Name and Address Organization Details Recorded Time 07/01/2023 text/html Pt arrives for STD testing. He states that his partner slept with someone positive for chlamydia/gonorrhea . He denies any lesions or discharge from the penis, no pain with urination. says head of penis is aching. MAXIMINO RAO NP [address], [address], [facility] 07/01/2023 17:05:20 01/28/2024 text/html Pt presents with epigastric pain. History of bowel blockage. LBM 01/26/24 describes as normal. Reports he has had a fever. Back hurts where his kidney's are. When he belches it smells like a fart. Pt left ama from [facility] in October when he had the same symptoms.Sometimes has burning in esophagus. States he feels freezing cold and has bad back pain. Started yesterday; pain is in the lower middle back.Pt has h/o hepatitis c but was told it was cured in October. Pt has stage 4 liver disease per girlfriend. MAXIMINO RAO NP [address], [address], [facility] 01/28/2024 14:21:56 05/01/2024 text/html ROS as noted in the HPI Pt presents for stomach pain onset 4 days. Says he feels bloated. Reports at first (4 days ago) he had n/v - emesis x 2, denies diarrhea. Reports took one gasX but didn't help. Reports abd pain is not as bad as it was. c/o lower back pain with shocks going down R leg from R buttock down to R foot, onset 1-2 weeks ago. Denies numbness in leg or foot. States has had them before when he was in nursing home 2 years ago but has started having them again. Reports shocks happens approx 100 times a day- anytime he swats down or comes up. Denies any prev injury that he know of. Reports feels like a tingle and shock. Reports it starts in middle or R buttock and goes down back of leg to his toes., Denies numbness in leg/foot. Reports he had to go to ER the first of this year for abd pain and he had a bowel blockage and was in hospital a couple of days and he left ama because they wouldn't let him eat. He reports his bowels have been moving normal now. Points to LUQ as point of pain. States I'm worried my liver is swollen. He reports he use to have Hepatitis C and was treated for it and it has been gone since about part 2022. Reports combined pain in abd and lower back is 6/10. Reports he has never had any xrays of his back. Denies ever, chills, HEENT, Resp, prob or skin prob. No further nausea, and reports last bm was today. Pt reports he has cirrhosis of liver. LETTY HINSON NP [address], [address], [facility] 05/01/2024 15:42:55 05/29/2025 text/html Dl presents today with eye redness and drainage. He reports waking up with a red eye with drainage. He denies any specific incident of foreign body introduction to the eye. He reports no vision issues when the eye is uncovered, but notes visual impairment when the eye is covered. 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 He appears unaware of proper contact lens hygiene and potential complications from extended wear. 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 Charo Agarwal NP [address], [address], [facility] 05/29/2025 18:48:31
[2025-06-29] MEDS: diphenhydrAMINE 50 mg/mL SDV 1mL IVP (01:11)
[2025-06-29] MEDS: metoclopramide 5 mg/mL SDV 2 mL 10 MG IVP (01:11)
--- NOTE | 2025-06-29 01:35 | CTR_ITS ---
PROCEDURE INFORMATION: Exam: CT Head Without Contrast Exam date and time: 06/29/2025 1:48 AM Age: 40 years old Clinical indication: Pain; Headache; Additional info: NOYOLA TECHNIQUE: Imaging protocol: Computed tomography of the head without contrast. Radiation optimization: All CT scans at this facility use at least one of these dose optimization techniques: automated exposure control; mA and/or kV adjustment per patient size (includes targeted exams where dose is matched to clinical indication); or iterative reconstruction. COMPARISON: No relevant prior studies available. RADIATION DOSE METRICS: Total DLP (mGy-cm): 1424.4 FINDINGS: Brain: Normal. No hemorrhage. Unremarkable white matter. No mass effect. Cerebral ventricles: No ventriculomegaly. Paranasal sinuses: Visualized sinuses are unremarkable. No fluid levels. Mastoid air cells: Visualized mastoid air cells are well aerated. Bones: Unremarkable. No acute fracture. Soft tissues: Unremarkable. CT/CT head wo con* [id number] IMPRESSION: No acute intracranial abnormality.
[2025-06-29 02:35] VITALS: BP 134/82; PULSE 76; RESP 14; O2SAT 97
== END 2025-06-29 02:38 | disposition home or self-care (01) ==
PROVIDERS: Emergency Provider Emergency Medicine
DX: R51.9 Headache, unspecified (principal)
CPT/HCPCS: 70450; 96361; 96374; 96375; 99285; J1200; J1885; J2765; J7030